=== PATIENT | female | born 1940 | race Caucasian/White ===

== ENCOUNTER 2017-04-30 10:16 | Outpatient (CLI) | payer MEDICARE ==
[2016-01-05 08:08] VITALS: BP 140/67
[2017-04-30 11:02] LABS: eGFR (African) > 60; eGFR (Non-African) > 60
--- NOTE | 2017-04-30 15:50 | Diagnostic Imaging Report ---
ARELI LOPEZ [facility] [address] [facility].[address] [address] Report Submission Date: Apr 30, 2017 2:57:32 PM CDT Patient Study Name: GREGG EVANS Date: Apr 30, 2017 10:41:17 AM CDT Modality Type: CR Gender: F Description: CHEST : 36 Institution: [facility] Physician: ARELI LOPEZ Examination: PA and lateral chest. History: Evaluate lung coe. Findings: PA lateral chest demonstrate a normal cardiac and mediastinal silhouette. Left hilar parenchymal densities. No effusion. No blunting of the costophrenic margins. Osseous structures are appropriate for age. Impression: Left hilar scarring versus mild infiltrate. Correlate with patient symptoms.. Electronically signed on Apr 30, 2017 2:57:32 PM CDT by: Rock MERCHANT
== END 2017-04-30 10:17 ==
LOC: RAD 10:16
PROVIDERS: ATTEND Family Medicine
DX: M19.019 Primary osteoarthritis, unspecified shoulder (principal); M79.7 Fibromyalgia; E78.5 Hyperlipidemia, unspecified; M81.0 Age-related osteoporosis without current pathological fracture
CPT/HCPCS: 36415; 71020; 80053; 80061

== ENCOUNTER 2017-10-28 15:08 | Outpatient (CLI) | payer MEDICARE ==
[2016-01-05 08:08] VITALS: BP 140/67
[2017-10-28 15:29] LABS: BASOPHILS % 0.5 (0.0-1.5); EOSINOPHILS % 1.8 % (0.0-6.8); MEAN CORPUSCULAR HEMOGLOBIN 30.1 pg (28.0-34.0); MEAN CORPUSCULAR VOLUME 91.1 fl (80.0-100.0); MONOCYTES % 4.2 % (0.0-11.0)
[2017-10-28 15:53] LABS: eGFR (African) > 60; eGFR (Non-African) > 60
[2017-10-28 23:47] LABS: T3-UPTAKE 33.3 % (25.4-41.2)
== END 2017-10-28 15:15 ==
LOC: LAB 15:08
PROVIDERS: ATTEND Family Medicine
DX: G60.9 Hereditary and idiopathic neuropathy, unspecified (principal); R03.0 Elevated blood-pressure reading, without diagnosis of hypertension
CPT/HCPCS: 36415; 80053; 84436; 84479; 85025; 85651

== ENCOUNTER 2017-10-30 13:33 | Outpatient (CLI) | payer MEDICARE ==
[2016-01-05 08:08] VITALS: BP 140/67
--- NOTE | 2017-10-30 15:18 | Diagnostic Imaging Report ---
REYNALDO TOLENTINO [facility] [address] [facility] [address] [place] [address]. [id number] Report Submission Date: Oct 30, 2017 2:05:53 PM FINISH CARPENTER Patient Study Name: GREGG EVANS Date: Oct 30, 2017 1:49:16 PM FINISH CARPENTER Modality Type: CR Gender: F Description: CHEST : 36 Institution: [facility] Physician: REYNALDO TOLENTINO Examination: PA and lateral chest. History: Evaluate lung coe. Comparison exam: 30 April 2017 Findings: PA lateral chest demonstrate a normal cardiac stable right paratracheal density. Vascular calcification by the aortic arch. No focal infiltrate. No blunting of the costophrenic margins. Osseous structures are appropriate for age. Impression: Stable examination. No acute appearing pulmonary process. Electronically signed on Oct 30, 2017 2:05:53 PM FINISH CARPENTER by: Rock MERCHANT
== END 2017-10-30 13:45 ==
LOC: LAB 13:33
PROVIDERS: ATTEND Physician Assistant
DX: R70.0 Elevated erythrocyte sedimentation rate (principal); R09.89 Other specified symptoms and signs involving the circulatory and respiratory systems
CPT/HCPCS: 36415; 71020; 86038; 86431

== ENCOUNTER 2017-11-13 07:40 | Emergency (ER) | payer MEDICARE ==
--- NOTE | 2017-11-13 07:59 | ED Physician Documentation ---
General Adult - HISTORIAN Historian: patient - HPI Stated Complaint: scalp irritation Chief Complaint: General Adult Onset: other (since Sep 26 ) Timing: still present Severity: mild Further Comments: yes (she states the beginning of Sep she got her normal perm and then 2 weeks later she states she did dye her hair and since she has had scalp irritation and burning . She did see Dr Gunderson and Garima and she was told she had an inflammation in her body but states she was not treated for anything. She did use OTC steroid cream last night on her scalp and she states it helped some. She is sure she has an inflammation with her scalp per the lab that Garima told her about she denies any pain or drainge.) - ROS CONST: no problems EYES/ENT: none CVS/RESP: none GI/: none MS/SKIN/LYMPH: denies: rash NEURO/PSYCH: denies: headache - PAST HX Past History: other (she did not want to list she states "you have all that" ) Surgeries/Procedures: other (She would not report ) Immunizations: referred to PCP Allergies/Adverse Reactions: Allergies Allergy/AdvReac Type Severity Reaction Status Date / Time No Known Drug Allergies Allergy Verified 11/13/17 08:03 - SOCIAL HX Smoking History: non-smoker Alcohol Use: none Drug Use: none - FAMILY HX Family History: No - VITAL SIGNS Vital Signs: Vital Signs Temp Pulse Resp BP Pulse Ox 140/67 01/05/16 08:17 - REVIEWED ASSESSMENTS Nursing Assessment Reviewed: Yes Vitals Reviewed: Yes General Adult Physical Exam - PHYSICAL EXAM GENERAL APPEARANCE: no distress NECK: normal inspection CVS: reg rate & rhythm, heart sounds normal ABDOMEN: soft SKIN: warm/dry, other (scalp is without redness no other areas of concern . Hair is thin) NEURO: oriented X3, CN's nml as tested Discharge Clincal Impression: Skin abnormality Referrals: Frank Gunderson MD [Primary Care Provider] - 2 Days Comments: Follow up with PCP for any lab concerns Also use OTC meds to aide with moisturizer Condition: Stable Disposition: 01 HOME, SELF-CARE Decision to Admit: NO Date of Decison to Admit: 11/13/17 Decision Time: 08:11
[2017-11-13 08:06] VITALS: BP 164/71
== END 2017-11-13 08:22 | disposition home or self-care (01) ==
LOC: ED 07:40
DX: Q82.9 Congenital malformation of skin, unspecified (principal)
CPT/HCPCS: 99283

== ENCOUNTER 2017-11-18 08:27 | Emergency (ER) | payer MEDICARE ==
--- NOTE | 2017-11-18 09:16 | ED Physician Documentation ---
Upper Respiratory Symptoms - HISTORIAN Historian: patient - HPI Stated Complaint: On-going sore throat Chief Complaint: Sore Throat Onset: days ago (3-4) Context: denies: recent foreign travel, insect bite(s), tick(s), recent chemotherapy, multiple patients, same sx, other Severity: moderate Associated Symptoms: fever, chills, runny nose, sore throat, productive cough. denies: sinus pain, sinus drainage, shortness of breath, headache Further Comments: yes (77 year old female patient presents with complaints of sore throat and cough. Patient denies any headache, sinus drainage or SOB. Reports using nyquil and dayquil at home with no relief.) - ROS CONST/EYES: denies: weakness, eye redness, eye itching, other CVS/RESP: none LYMPH: denies: leg swelling, rash, swollen glands, ankle swelling, other GI/: none MS/SKIN: denies: joint pain, muscle aches - PAST HX Lung Disease: none PE Risk Factors: hypertension Other History: other (GERD) Allergies/Adverse Reactions: Allergies Allergy/AdvReac Type Severity Reaction Status Date / Time No Known Drug Allergies Allergy Verified 11/18/17 08:53 Home Medications: Ambulatory Orders Medication Instructions Recorded Benzonatate [Tessalon Perles] 200 mg PO TID PRN #30 capsule 11/18/17 Ranitidine HCl [Ranitidine HCl] 150 mg PO D 11/18/17 - SOCIAL HX Smoking History: non-smoker - FAMILY HX Family History: denies: none - VITAL SIGNS Vital Signs: Vital Signs Temp Pulse Resp BP Pulse Ox 98.3 F 85 16 160/61 94 11/18/17 08:28 11/18/17 08:28 11/18/17 08:28 11/18/17 08:28 11/18/17 08:28 - REVIEWED ASSESSMENTS Nursing Assessment Reviewed: Yes Vitals Reviewed: Yes Progress - Progress Progress: Reviewed old charts and lab. Reviewed negative flu and negative strep results with patient. Reviewed discharge instructions, verbalized understanding. ED Results Lab/Radiology - Orders Orders: ED Orders Category Date Time Status INFLUENZA A&B Stat Lab 11/18/17 09:36 Ordered Rapid Strep [GRP A STREP SCREEN] Stat Lab 11/18/17 08:55 Ordered Upper Respiratory Symptoms - EXAM General Appearance: mild distress EENT: eyes nml inspection, nml ENT inspection, lids & conjunct. nml, PERRL, ear nml, rhinorrhea, pharynx nml, airway nml Respiratory: no resp. 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 Chloraseptic spray or lozenges as needed for throat pain. Warm salt water gargles as needed pain Increase your fluid intake juices, hot tea, non-caffeinated beverages If you are congested - You may want to try Vicks rub on your chest and/or feet Use a humidifier in the room where you sleep. You can also sit in a steam filled bathroom 1-2 times a day. Tylenol or Ibuprofen as needed for fever, pain and body aches. Condition: Stable Disposition: 01 HOME, SELF-CARE Decision to Admit: NO Decision Time: 09:45
[2017-11-18 13:18] VITALS: BP 154/62
== END 2017-11-18 09:45 | disposition home or self-care (01) ==
LOC: ED 08:27
DX: J00 Acute nasopharyngitis [common cold] (principal)
CPT/HCPCS: 87070; 87400; 87880; 99282

== ENCOUNTER 2017-12-09 08:08 | Inpatient (IN) | payer MEDICARE ==
--- NOTE | 2017-12-09 08:16 | ED Physician Documentation ---
General Adult - HISTORIAN Historian: patient - HPI Stated Complaint: cough, weakness Chief Complaint: General Adult Onset: days ago Timing: still present Severity: moderate Further Comments: yes (Pt is a 77 yo female with cough, productive of yellow phlegm for several days. Pt c/o weakness. No chest pain. Pt's SpO2=91% on presentation without fever.) - ROS CONST: weakness EYES/ENT: none CVS/RESP: shortness of breath, cough GI/: none MS/SKIN/LYMPH: none - PAST HX Past History: hypertension, other (GERD) Allergies/Adverse Reactions: Allergies Allergy/AdvReac Type Severity Reaction Status Date / Time No Known Drug Allergies Allergy Verified 12/09/17 08:25 - SOCIAL HX Smoking History: non-smoker - FAMILY HX Family History: No - VITAL SIGNS Vital Signs: Vital Signs Temp Pulse Resp BP Pulse Ox 154/62 11/18/17 13:14 - REVIEWED ASSESSMENTS Nursing Assessment Reviewed: Yes Vitals Reviewed: Yes Progress - Progress Progress: NS 500 cc IVF Lasix 20 mg IV Levaquin 500 mg IV Admit to Dr. Gunderson. - EKG/XRAY/CT EKG: NSR (HR=69; possible LVH; non-specific T-wave changes; normal axis; normal MS interval.) XRAY: chest ( Bibasilar infiltrates and effusions.) General Adult Physical Exam - PHYSICAL EXAM GENERAL APPEARANCE: mild distress EENT: pharynx normal NECK: normal inspection, supple RESPIRATORY: rales, rhonchi, other (coarse breath sounds) CVS: reg rate & rhythm, heart sounds normal ABDOMEN: soft, no organomegaly, normal bowel sounds BACK: normal inspection, no CVA tenderness SKIN: warm/dry, normal color EXTREMITIES: non-tender, normal range of motion, no evidence of injury NEURO: oriented X3, motor nml, sensation nml Discharge Clincal Impression: bibasilar pneumonia, CHF Referrals: Frank Gunderson MD [Primary Care Provider] - Condition: Stable Disposition: ADMITTED INPATIENT Decision to Admit: [id number] Decision Time: 11:11
[2017-12-09] MEDS ORDERED: 0.9 % SODIUM CHLORIDE 500 ML IV ONE (08:26)
[2017-12-09 09:14] LABS: BASOPHILS % 0.6 (0.0-1.5); EOSINOPHILS % 0.3 % (0.0-6.8); MEAN CORPUSCULAR HEMOGLOBIN 30.4 pg (28.0-34.0); MEAN CORPUSCULAR VOLUME 90.7 fl (80.0-100.0); MONOCYTES % 4.3 % (0.0-11.0); NEUTROPHILS # 17.1 # k/uL (1.4-7.7)
[2017-12-09 10:03] LABS: eGFR (African) > 60; eGFR (Non-African) > 60
[2017-12-09] MEDS ORDERED: FUROSEMIDE 20 MG/2 ML VIAL IVP ONE (10:09)
--- NOTE | 2017-12-09 10:14 | Diagnostic Imaging Report ---
JOSE DE JESUS SHERWOOD [facility] [address] [facility] [address] [place] [address]. [id number] Report Submission Date: Dec 09, 2017 8:49:45 AM VIDEO PRODUCTION ASSISTANT Patient Study Name: GREGG EVANS Date: Dec 09, 2017 8:38:40 AM VIDEO PRODUCTION ASSISTANT Modality Type: CR Gender: F Description: CHEST : 36 Institution: [facility] Physician: JOSE DE JESUS SHERWOOD Examination: PA and lateral chest. History: Evaluate lung coe. Comparison exam: 30 October 2017 Findings: PA lateral chest demonstrate a normal cardiac and mediastinal silhouette. Vascular calcifications involving aortic arch. Increased basilar infiltrates associated blunting of the costophrenic margins and posterior sulci. Apical parenchymal scarring. Osseous structures are appropriate for age. Impression: Bibasilar infiltrates and effusions. Electronically signed on Dec 09, 2017 8:49:45 AM VIDEO PRODUCTION ASSISTANT by: Rock MERCHANT
[2017-12-09] MEDS ORDERED: IPRATROPIUM/ALBUTEROL SULFATE 3 ML AMPUL.NEB NEB PRN (11:04)
[2017-12-09] MEDS ORDERED: LEVOFLOXACIN 500MG/D5W 100ML 500 MG in PREMIX BAG 1 BAG IV ONE (11:09)
[2017-12-09] MEDS ORDERED: LEVOFLOXACIN 500MG/D5W 100ML 100 ML IV ONE ×2 (11:19→13:29)
[2017-12-09] MEDS: FUROSEMIDE 20 MG/2 ML VIAL IVP SCH ×2 (11:29→11:30)
[2017-12-09] MEDS: AZITHROMYCIN 500 MG in 0.9 % SODIUM CHLORIDE 250 ML IV SCH (11:29)
[2017-12-09] MEDS ORDERED: ONDANSETRON HCL/PF 4 MG/ 2ML VIAL ONE (12:33)
[2017-12-09] MEDS ORDERED: ONDANSETRON HCL/PF 4 MG/ 2ML VIAL IVP ONE (12:35)
--- NOTE | 2017-12-09 13:13 | History and Physical Report ---
History of Present Illnes - History of Present Illness Reason for Visit: dyspnea History of Present Illness: Patient is a 77-year-old white femaleWho stated she is not been feeling well for the last month. Patient states she has been fatigued having some nondescript numbness and tingling sensation to her hands. Patient believes that she replaced on antibiotic therapy for 10 days for some sinus congestion/ drainage that she finished in the end of October. Patient does not remember the name of the antibiotic. Patient data she continue to feel weeks since the time in over the last 5 to 7 days of developed a productive cough up some green to yellow phlegm. No home offices has been noted. Patient denies any chills is a mild low-grade fever from time to time. Patient came to the ED for evaluation. Patient was found to have bilateral lower infiltrates with a leukocytosis of 20,000 with a left shift. Patient was felt to have a pneumonia was subsequently admitted to the hospital for further care and evaluation. 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 negative: Chills, Sweats Eyes: negative: pain, vision change ENT: Nose Discharge (clear), Nose Congestion. negative: Ear Pain, Ear Discharge , Nose Pain, Mouth Pain, Mouth Swelling, Throat Pain Respiratory: Cough, Shortness of Breath, SOB with Excertion, Sputum, Wheezing. negative: Hemoptysis, Pleuritic Pain Cardiovascular: negative: Chest Pain, Palpitations, Orthopnea, Paroxysmal Noc. Dyspnea, Edema, Light Headedness Gastrointestinal: negative: Nausea, Vomiting, Abdominal Pain, Diarrhea, Constipation, Melena, Hematochezia Genitourinary: negative: Dysuria, Frequency, Incontinence, Hematuria, Retention Musculoskeletal: negative: Back Pain Skin: negative: Rash, Lesions Neurological: Weakness. negative: Numbness, Incoordination, Change in Speech, Confusion, Seizures - Medications/Allergies Allergies/Adverse Reactions: Allergies Allergy/AdvReac Type Severity Reaction Status Date / Time No Known Drug Allergies Allergy Verified 12/09/17 08:25 Current Inpatient Medications: Current Inpatient Medications Albuterol/Ipratropium (Duoneb) 3 ml NEB Q4 [facility] Furosemide (Lasix) 20 mg IVP DAILY [facility] Last Admin: 12/09/17 11:30 Dose: 20 mg Azithromycin 500 mg/ Sodium (Chloride) 250 mls @ 125 mls/hr IV Q24H [facility] Stop: 12/19/17 11:03 Last Admin: 12/09/17 11:29 Dose: 125 mls/hr Levofloxacin/Dextrose 500 mg/ (PREMIX BAG) 100 mls @ 100 mls/hr IV DAILY [facility] Sodium Chloride (Normal Saline Flush) 3 ml IV BID [facility] Temazepam () 15 mg PO HS [facility] Exam - Exam Vital Signs: Vital Signs (72 hours) 12/09/17 12:45 Pulse Rate [ 86 Left Pulse ox] Respiratory 19 Rate Blood Pressure 114/72 [Left Arm] O2 Sat by Pulse 91 L Oximetry General: Alert, Oriented to Person, Oriented to Place, Oriented to Time, Cooperative, Mild distress HEENT: Atraumatic, PERRLA, EOMI, Mouth Mucous membr. moist/Silt, Nose Mucous membr. moist/Silt, Dentition Normal, Hearing Grossly Normal Neck: Normal Range of Motion Carotids: WNL Thyroid: WNL Lungs: Clear to auscultation, Normal air movement, Speaks full Sentences, Wheezes (L base), Rales (in bases R>L), Rhonchi (in bases R>L) Cardiovascular: Regular rate, Normal S1, Normal S2, No murmurs. No: Gallops, Rubs, Irregularly Irregular, Regularly Irregular, Bradycardia, Tachycardia, Atrial Fib, Atrail Flutter, PSVT, PVC, PAC Abdomen: Normal bowel sounds, Soft, No tenderness, No hepatospenomegaly, No masses. No: Distended, Rigid Integumentary: Normal, Silt, Warm, Dry. No: Pale, Flushed, Jaundiced, Rash Extremities: No clubbing, No cyanosis, No edema, Normal pulses, No tenderness/ swelling Neurological: Normal gait, Normal speech, Strength Equal Bilat, Normal tone, Sensation intact, Cranial nerves 3-12 NL, Reflexes 2+ Psych/Mental Status: Mental status NL, Mood NL, Appropriate Affect, Intact Judgment Assessment/Plan - Assessment/Plan (1) Pneumonia Status: Acute Current Visit: Yes Qualifiers: Pneumonia type: due to unspecified organism Laterality: bilateral Lung location: lower lobe of lung Qualified Code(s): J18.9 - Pneumonia, unspecified organism (2) History of breast cancer Status: Chronic Current Visit: Yes (3) Fibromyalgia Status: Chronic Current Visit: Yes (4) Osteoarthritis Status: Chronic Current Visit: Yes Qualifiers: Osteoarthritis location: multiple joints Osteoarthritis type: primary Qualified Code(s): M15.0 - Primary generalized (osteo)arthritis VTE Assessment - RISK FACTOR SCORE VTE RISK FACTOR SCORES: AGE OVER 60 YEARS, ACUTE INFECTION OTHER THEN SEPSIS, ANTICIPATED BED CONFINEMENT OR IMMOBILIZATION > 24 HOURS - RISK VTE HIGH RISK: SCORE OF 3-4 (RISK PROXIMAL DVT 4-8%) PROPHYLAXIS NEEDED ( Lovenox started)
[2017-12-09] MEDS: ENOXAPARIN SODIUM 30 MG/0.3 ML DISP.SYRIN SQ SCH (13:43)
[2017-12-09] MEDS: IPRATROPIUM/ALBUTEROL SULFATE 3 ML AMPUL.NEB NEB SCH ×3 (13:45→21:00)
[2017-12-09 15:59] VITALS: BMI 22.0
[2017-12-09] MEDS: ONDANSETRON HCL 4 MG TAB.RAPDIS PO PRN (18:59)
[2017-12-09] MEDS: TEMAZEPAM 15 MG CAP PO SCH (20:04)
[2017-12-09] MEDS: SALINE FLUSH 10 ML DISP.SYRIN IV SCH (20:08)
[2017-12-10] MEDS: IPRATROPIUM/ALBUTEROL SULFATE 3 ML AMPUL.NEB NEB SCH ×6 (02:12→20:50)
[2017-12-10] MEDS: ONDANSETRON HCL 4 MG TAB.RAPDIS PO PRN ×2 (04:10→12:24)
[2017-12-10 05:57] LABS: APPEARANCE,URINE CLEAR (CLEAR); COLOR,URINE AMBER (YELLOW); OCCULT BLOOD,URINE NEGATIVE (NEGATIVE); UROBILINOGEN URINE 0.2 Eu (0.2-1.0)
[2017-12-10 07:39] LABS: BASOPHILS % 0.6 (0.0-1.5); EOSINOPHILS % 0.1 % (0.0-6.8); MEAN CORPUSCULAR HEMOGLOBIN 29.7 pg (28.0-34.0); MEAN CORPUSCULAR VOLUME 92.7 fl (80.0-100.0); MONOCYTES % 3.6 % (0.0-11.0); NEUTROPHILS # 15.3 # k/uL (1.4-7.7)
[2017-12-10 08:03] LABS: eGFR (African) > 60; eGFR (Non-African) > 60
[2017-12-10] MEDS ORDERED: LEVOFLOXACIN 500MG/D5W 100ML 100 ML IV ONE (08:32)
[2017-12-10] MEDS: SALINE FLUSH 10 ML DISP.SYRIN IV SCH ×2 (08:34→20:30)
[2017-12-10] MEDS: LEVOFLOXACIN 500MG/D5W 100ML 500 MG in PREMIX BAG 1 BAG IV SCH (08:34)
[2017-12-10] MEDS: AZITHROMYCIN 500 MG in 0.9 % SODIUM CHLORIDE 250 ML IV SCH (10:49)
--- NOTE | 2017-12-10 12:47 | Inpatient Progress Note ---
Subjective - Required Recertification Statement I anticipate X number of days because-include discharge plan: 2 days - Review of Systems Events since last encounter: patient states she is feeling better today although he still feels weak. Patient continues to have a cough that was productive up some green to clear plan. No hemoptysis has been noted. Patient is had some mild nausea with no associated vomiting. Patient denies any diarrhea. Last bowel movement with two days ago and normal. General: Denies: Chills HEENT: Denies: Head Aches Pulmonary: Dyspnea, Cough. Denies: Pleuritic Chest Pain Cardiovascular: Denies: Chest Pain, Palpitations Gastrointestinal: Nausea. Denies: Vomiting, Abdominal Pain, Diarrhea, Constipation Objective - Exam Vitals and I&O: Vital Signs Temp 98.8 F 12/10/17 10:00 Pulse 94 H 12/10/17 10:00 Resp 18 12/10/17 10:00 BP 161/71 12/10/17 10:00 Pulse Ox 96 12/10/17 10:00 Intake & Output 12/09/17 12/10/17 12/10/17 23:59 11:59 23:59 Intake Total 300 240 Output Total 300 700 Balance 0 -460 Weight 52.951 kg Intake: Oral 300 240 Output: Urine 700 Stool 0 Emesis 300 Other: Voiding Method Toilet Toilet # Voids 5 # Bowel Movements 0 General: Alert, Oriented to Person, Oriented to Place, Oriented to Time, Cooperative HEENT: Atraumatic, PERRLA, EOMI, Mouth Mucous membr. moist/Rhododendron, Nose Mucous membr. moist/Rhododendron Neck: Supple, No JVD, No thyromegaly Lungs: Normal air movement, Speaks full Sentences, Rales (right), Rhonchi (right ) Cardiovascular: Regular rate, Normal S1, Normal S2, No murmurs Abdomen: Normal bowel sounds, Soft, No tenderness, No hepatospenomegaly, No masses Extremities: No clubbing, No cyanosis, No edema, Normal pulses, No tenderness/ swelling Skin: Normal, Rhododendron, Warm, Dry Neurological: Normal gait, Normal speech, Strength Equal Bilat, Normal tone, Sensation intact, Cranial nerves 3-12 NL, Reflexes 2+ Psych/Mental Status: Mental status NL, Mood NL, Appropriate Affect, Intact Judgment - Results Results: Laboratory Results WBC 18.40 K/ul (4.00-12.00) H 12/10/17 06:50 RBC 3.70 M/ul (3.90-5.20) L 12/10/17 06:50 Hgb 11.0 g/dL (12.0-16.0) L 12/10/17 06:50 Hct 34.3 % (34.5-46.5) L 12/10/17 06:50 MCV 92.7 fl (80.0-100.0) 12/10/17 06:50 MCH 29.7 pg (28.0-34.0) 12/10/17 06:50 MCHC 32.1 g/dL (30.0-36.0) 12/10/17 06:50 RDW 13.5 % (11.3-14.3) 12/10/17 06:50 Plt Count 570 K/mm3 (130-400) H 12/10/17 06:50 Neut % (Auto) 82.8 % (39.0-79.0) H 12/10/17 06:50 Lymph % (Auto) 10.8 % (16.0-50.0) L 12/10/17 06:50 [place] % (Auto) 3.6 % (0.0-11.0) 12/10/17 06:50 Eos % (Auto) 0.1 % (0.0-6.8) 12/10/17 06:50 Baso % (Auto) 0.6 (0.0-1.5) 12/10/17 06:50 Neut # (Auto) 15.3 # k/uL (1.4-7.7) H 12/10/17 06:50 Lymph # (Auto) 2.0 # k/uL (0.6-4.0) 12/10/17 06:50 [place] # (Auto) 0.7 # k/uL (0.0-0.9) 12/10/17 06:50 Eos # (Auto) 0.0 # k/uL (0.0-0.6) 12/10/17 06:50 Baso # (Auto) 0.1 # k/uL (0.0-0.5) 12/10/17 06:50 Reactive Lymphs % 2.2 % (0.0-5.0) 12/10/17 06:50 Reactive Lymphs # 0.4 # k/uL (0.0-0.8) 12/10/17 06:50 Sodium 139 mmol/L (136-145) 12/10/17 06:50 Potassium 3.0 mmol/L (3.5-5.1) L 12/10/17 06:50 Chloride 97 mmol/L (98-107) L 12/10/17 06:50 Carbon Dioxide 26 mmol/L (22-30) 12/10/17 06:50 BUN 9 mg/dL (7-17) 12/10/17 06:50 Creatinine 0.70 mg/dL (0.52-1.04) 12/10/17 06:50 Estimated Creat Clear 64 12/10/17 06:50 Est GFR ( Amer) > 60 (60-) 12/10/17 06:50 Est GFR (Non-Af Amer) > 60 (60-) 12/10/17 06:50 Glucose 107 mg/dL (74-106) H 12/10/17 06:50 Calcium 8.4 mg/dL (8.4-10.2) 12/10/17 06:50 Total Bilirubin 0.4 mg/dL (0.2-1.3) 12/10/17 06:50 AST 28 U/L (15-46) 12/10/17 06:50 ALT 41 U/L (13-69) 12/10/17 06:50 Alkaline Phosphatase 185 U/L (38-126) H 12/10/17 06:50 Troponin I < 0.03 ng/mL (0.03-0.06) L 12/09/17 09:00 NT-Pro-B Natriuret Pep 2822.3 pg/mL (15.0-450.0) H 12/09/17 09:00 Total Protein 6.5 g/dL (6.3-8.2) 12/10/17 06:50 Albumin 2.9 g/dL (3.5-5.0) L 12/10/17 06:50 Urine Color Sherin (YELLOW) 12/09/17 11:02 Urine Appearance Clear (CLEAR) 12/09/17 11:02 Urine pH 6.0 (5.0 - 8.0) 12/09/17 11:02 Ur Specific Coyle 1.010 (1.010-1.030) 12/09/17 11:02 Urine Protein 1+ mg/dL (NEGATIVE) H 12/09/17 11:02 Urine Ketones Trace mg/dL (NEGATIVE) H 12/09/17 11:02 Urine Occult Blood Negative (NEGATIVE) 12/09/17 11:02 Urine Nitrite Negative (NEGATIVE) 12/09/17 11:02 Urine Bilirubin Negative (NEGATIVE) 12/09/17 11:02 Urine Urobilinogen 0.2 Eu (0.2-1.0) 12/09/17 11:02 Ur Leukocyte Esterase Negative (NEGATIVE) 12/09/17 11:02 Urine Glucose Negative mg/dL (NEGATIVE) 12/09/17 11:02 Assessment/Plan - Assessment/Plan (1) Pneumonia Status: Acute Current Visit: Yes Qualifiers: Pneumonia type: due to unspecified organism Laterality: bilateral Lung location: lower lobe of lung Qualified Code(s): J18.9 - Pneumonia, unspecified organism Assessment: patient breathing seemed to be some improve. Will continue with current treatment. Patient WBC count has improved slightly. (2) History of breast cancer Status: Chronic Current Visit: Yes (3) Fibromyalgia Status: Chronic Current Visit: Yes Assessment: stable (4) Osteoarthritis Status: Chronic Current Visit: Yes Qualifiers: Osteoarthritis location: multiple joints Osteoarthritis type: primary Qualified Code(s): M15.0 - Primary generalized (osteo)arthritis Assessment: stable will continue with home medications.
[2017-12-10] MEDS: ENOXAPARIN SODIUM 30 MG/0.3 ML DISP.SYRIN SQ SCH (13:07)
[2017-12-10] MEDS: POTASSIUM CHLORIDE 20 MEQ TABLET.ER PO SCH (13:09)
[2017-12-10] MEDS: TEMAZEPAM 15 MG CAP PO SCH (20:30)
[2017-12-11] MEDS: IPRATROPIUM/ALBUTEROL SULFATE 3 ML AMPUL.NEB NEB SCH ×6 (02:16→20:54)
[2017-12-11 06:51] LABS: BASOPHILS % 0.7 (0.0-1.5); EOSINOPHILS % 0.2 % (0.0-6.8); MEAN CORPUSCULAR HEMOGLOBIN 29.7 pg (28.0-34.0); MEAN CORPUSCULAR VOLUME 89.7 fl (80.0-100.0); MONOCYTES % 4.6 % (0.0-11.0); NEUTROPHILS # 14.6 # k/uL (1.4-7.7)
--- NOTE | 2017-12-11 07:05 | Diagnostic Imaging Report ---
[facility] [address] [address] [facility] [address] [address] Report Submission Date: Dec 11, 2017 6:52:44 AM ADA ACCOMMODATION CONSULTANT Patient Study Name: GREGG EVANS Date: Dec 11, 2017 6:14:18 AM ADA ACCOMMODATION CONSULTANT Modality Type: CR Gender: F Description: CHEST : 36 Institution: [facility] Physician: [facility]/MED SURG Chest, 2 view History: PRODUCTIVE COUGH X 2 WEEKS Findings: The heart size is normal. Mild bibasilar infiltrate is present with associated small bilateral pleural effusions. The osseous structures are normal. Impression: 1. Bibasilar infiltrate with small bilateral pleural effusions. Electronically signed on Dec 11, 2017 6:52:44 AM ADA ACCOMMODATION CONSULTANT by: Vinnie MERCHANT
--- NOTE | 2017-12-11 07:07 | Diagnostic Imaging Report ---
[facility] [address] [address] [facility] [address] [address] Report Submission Date: Dec 11, 2017 6:56:14 AM PER DIEM RN Patient Study Name: GREGG EVANS Date: Dec 11, 2017 6:17:34 AM PER DIEM RN Modality Type: CR Gender: F Description: ABDOMEN : 36 Institution: [facility] Physician: [facility] /MED SURG ABDOMEN AP VIew History: NAUSEA, ABDOMEN PAIN X 2 DAYS Findings: The bowel gas pattern is normal without evidence of obstruction or bowel dilation. No abnormal abdominal calcifications are present. Bilateral hip osteoarthritis is present. Impression: 1. Normal bowel gas pattern. Electronically signed on Dec 11, 2017 6:56:14 AM PER DIEM RN by: Vinnie MERCHANT
[2017-12-11 07:24] LABS: eGFR (African) > 60; eGFR (Non-African) > 60
[2017-12-11] MEDS ORDERED: LEVOFLOXACIN 500MG/D5W 100ML 100 ML IV ONE (09:22)
[2017-12-11] MEDS: POTASSIUM CHLORIDE 20 MEQ TABLET.ER PO SCH (09:29)
[2017-12-11] MEDS: LEVOFLOXACIN 500MG/D5W 100ML 500 MG in PREMIX BAG 1 BAG IV SCH (09:29)
[2017-12-11] MEDS: SALINE FLUSH 10 ML DISP.SYRIN IV SCH ×2 (09:30→19:37)
[2017-12-11] MEDS: FUROSEMIDE 20 MG/2 ML VIAL IVP SCH (10:30)
[2017-12-11] MEDS: ENOXAPARIN SODIUM 30 MG/0.3 ML DISP.SYRIN SQ SCH (13:23)
[2017-12-11] MEDS: AZITHROMYCIN 500 MG in 0.9 % SODIUM CHLORIDE 250 ML IV SCH (13:23)
[2017-12-11] MEDS: TEMAZEPAM 15 MG CAP PO SCH (19:38)
--- NOTE | 2017-12-11 20:57 | Inpatient Progress Note ---
Subjective - Required Recertification Statement I anticipate X number of days because-include discharge plan: 1 day - Review of Systems Subjective: patient states she is feeling some better today. Patient stated her breathing seemed to be improved. Patient seemed to be ambulating with less dyspnea. Patient states she has had to small bowel limits. Patient is not had any further nausea. Hypertension has been stable. General: Fatigue. Denies: Chills HEENT: Denies: Head Aches Pulmonary: Dyspnea, Cough. Denies: Pleuritic Chest Pain Cardiovascular: Denies: Chest Pain Gastrointestinal: Constipation. Denies: Nausea, Vomiting, Abdominal Pain, Diarrhea Objective - Exam Vitals and I&O: Vital Signs Temp 99.3 F 12/11/17 16:49 Pulse 102 H 12/11/17 16:49 Resp 20 12/11/17 13:21 BP 139/66 12/11/17 16:49 Pulse Ox 95 12/11/17 16:49 Intake & Output 12/10/17 12/11/17 12/11/17 23:59 11:59 23:59 Intake Total 720 120 380 Output Total 0 800 Balance 720 -680 380 Weight 52.951 kg Intake: Oral 720 120 380 Output: Urine 800 Stool 0 Other: Voiding Method Toilet Toilet Toilet # Voids 4 2 General: Alert, Oriented to Person, Oriented to Place, Oriented to Time, Cooperative, No acute distress Neck: Supple, No JVD Lungs: Normal air movement, Speaks full Sentences, Rales (few posterior basilar rales). No: Wheezes, Rhonchi Cardiovascular: Regular rate, Normal S1, Normal S2, No murmurs Abdomen: Normal bowel sounds, Soft, No tenderness Extremities: No clubbing, No cyanosis, No edema Skin: Normal, [place], Warm Psych/Mental Status: Mental status NL, Appropriate Affect, Intact Judgment - Results Results: Laboratory Results WBC 18.10 K/ul (4.00-12.00) H 12/11/17 06:45 RBC 3.92 M/ul (3.90-5.20) 12/11/17 06:45 Hgb 11.6 g/dL (12.0-16.0) L 12/11/17 06:45 Hct 35.1 % (34.5-46.5) 12/11/17 06:45 MCV 89.7 fl (80.0-100.0) 12/11/17 06:45 MCH 29.7 pg (28.0-34.0) 12/11/17 06:45 MCHC 33.1 g/dL (30.0-36.0) 12/11/17 06:45 RDW 13.9 % (11.3-14.3) 12/11/17 06:45 Plt Count 596 K/mm3 (130-400) H 12/11/17 06:45 Neut % (Auto) 80.6 % (39.0-79.0) H 12/11/17 06:45 Lymph % (Auto) 11.6 % (16.0-50.0) L 12/11/17 06:45 [place] % (Auto) 4.6 % (0.0-11.0) 12/11/17 06:45 Eos % (Auto) 0.2 % (0.0-6.8) 12/11/17 06:45 Baso % (Auto) 0.7 (0.0-1.5) 12/11/17 06:45 Neut # (Auto) 14.6 # k/uL (1.4-7.7) H 12/11/17 06:45 Lymph # (Auto) 2.1 # k/uL (0.6-4.0) 12/11/17 06:45 [place] # (Auto) 0.8 # k/uL (0.0-0.9) 12/11/17 06:45 Eos # (Auto) 0.0 # k/uL (0.0-0.6) 12/11/17 06:45 Baso # (Auto) 0.1 # k/uL (0.0-0.5) 12/11/17 06:45 Reactive Lymphs % 2.3 % (0.0-5.0) 12/11/17 06:45 Reactive Lymphs # 0.4 # k/uL (0.0-0.8) 12/11/17 06:45 Sodium 137 mmol/L (136-145) 12/11/17 06:45 Potassium 3.4 mmol/L (3.5-5.1) L 12/11/17 06:45 Chloride 97 mmol/L (98-107) L 12/11/17 06:45 Carbon Dioxide 27 mmol/L (22-30) 12/11/17 06:45 BUN 9 mg/dL (7-17) 12/11/17 06:45 Creatinine 0.70 mg/dL (0.52-1.04) 12/11/17 06:45 Estimated Creat Clear 64 12/11/17 06:45 Est GFR ( Amer) > 60 (60-) 12/11/17 06:45 Est GFR (Non-Af Amer) > 60 (60-) 12/11/17 06:45 Glucose 103 mg/dL (74-106) 12/11/17 06:45 Calcium 8.7 mg/dL (8.4-10.2) 12/11/17 06:45 Total Bilirubin 0.4 mg/dL (0.2-1.3) 12/11/17 06:45 AST 26 U/L (15-46) 12/11/17 06:45 ALT 37 U/L (13-69) 12/11/17 06:45 Alkaline Phosphatase 176 U/L (38-126) H 12/11/17 06:45 Troponin I < 0.03 ng/mL (0.03-0.06) L 12/09/17 09:00 NT-Pro-B Natriuret Pep 2822.3 pg/mL (15.0-450.0) H 12/09/17 09:00 Total Protein 7.0 g/dL (6.3-8.2) 12/11/17 06:45 Albumin 3.1 g/dL (3.5-5.0) L 12/11/17 06:45 Urine Color Sherin (YELLOW) 12/09/17 11:02 Urine Appearance Clear (CLEAR) 12/09/17 11:02 Urine pH 6.0 (5.0 - 8.0) 12/09/17 11:02 Ur Specific Means 1.010 (1.010-1.030) 12/09/17 11:02 Urine Protein 1+ mg/dL (NEGATIVE) H 12/09/17 11:02 Urine Ketones Trace mg/dL (NEGATIVE) H 12/09/17 11:02 Urine Occult Blood Negative (NEGATIVE) 12/09/17 11:02 Urine Nitrite Negative (NEGATIVE) 12/09/17 11:02 Urine Bilirubin Negative (NEGATIVE) 12/09/17 11:02 Urine Urobilinogen 0.2 Eu (0.2-1.0) 12/09/17 11:02 Ur Leukocyte Esterase Negative (NEGATIVE) 12/09/17 11:02 Urine Glucose Negative mg/dL (NEGATIVE) 12/09/17 11:02 Assessment/Plan - Assessment/Plan (1) Pneumonia Status: Acute Current Visit: Yes Qualifiers: Pneumonia type: due to unspecified organism Laterality: bilateral Lung location: lower lobe of lung Qualified Code(s): J18.9 - Pneumonia, unspecified organism Assessment: patient clinically is looking and feeling better. However patient WBC count remains at 18,000. If this does not improve much by tomorrow will consider getting a CT scan of the chest (2) History of breast cancer Status: Chronic Current Visit: Yes (3) Fibromyalgia Status: Chronic Current Visit: Yes Assessment: stable (4) Osteoarthritis Status: Chronic Current Visit: Yes Qualifiers: Osteoarthritis location: multiple joints Osteoarthritis type: primary Qualified Code(s): M15.0 - Primary generalized (osteo)arthritis
[2017-12-12] MEDS: IPRATROPIUM/ALBUTEROL SULFATE 3 ML AMPUL.NEB NEB SCH ×6 (01:18→21:16)
[2017-12-12 06:53] LABS: BASOPHILS % 0.5 (0.0-1.5); EOSINOPHILS % 0.4 % (0.0-6.8); MEAN CORPUSCULAR HEMOGLOBIN 29.2 pg (28.0-34.0); MEAN CORPUSCULAR VOLUME 92.6 fl (80.0-100.0); MONOCYTES % 4.6 % (0.0-11.0); NEUTROPHILS # 9.6 # k/uL (1.4-7.7)
[2017-12-12 07:09] LABS: eGFR (African) > 60; eGFR (Non-African) > 60
[2017-12-12] MEDS ORDERED: LEVOFLOXACIN 500MG/D5W 100ML 100 ML IV ONE (09:56)
[2017-12-12] MEDS: POTASSIUM CHLORIDE 20 MEQ TABLET.ER PO SCH (10:01)
[2017-12-12] MEDS: FUROSEMIDE 20 MG/2 ML VIAL IVP SCH (10:01)
[2017-12-12] MEDS: LEVOFLOXACIN 500MG/D5W 100ML 500 MG in PREMIX BAG 1 BAG IV SCH (10:02)
[2017-12-12] MEDS: SALINE FLUSH 10 ML DISP.SYRIN IV SCH ×2 (10:02→20:16)
[2017-12-12] MEDS: AZITHROMYCIN 500 MG in 0.9 % SODIUM CHLORIDE 250 ML IV SCH (10:46)
[2017-12-12] MEDS: ENOXAPARIN SODIUM 30 MG/0.3 ML DISP.SYRIN SQ SCH (14:10)
[2017-12-12] MEDS: TEMAZEPAM 15 MG CAP PO SCH (20:18)
[2017-12-13] MEDS: IPRATROPIUM/ALBUTEROL SULFATE 3 ML AMPUL.NEB NEB SCH ×3 (00:43→08:47)
[2017-12-13] MEDS ORDERED: AZITHROMYCIN 250 MG TABLET PO ONE ×2 (08:38→08:40)
[2017-12-13] MEDS ORDERED: LEVOFLOXACIN 500 MG TABLET ONE (08:38)
[2017-12-13] MEDS ORDERED: LEVOFLOXACIN 500 MG TABLET PO ONE (08:40)
[2017-12-13] MEDS: LEVOFLOXACIN 500MG/D5W 100ML 500 MG in PREMIX BAG 1 BAG IV SCH (08:43)
[2017-12-13] MEDS: POTASSIUM CHLORIDE 20 MEQ TABLET.ER PO SCH (08:43)
[2017-12-13] MEDS: FUROSEMIDE 20 MG/2 ML VIAL IVP SCH (08:44)
[2017-12-13] MEDS: SALINE FLUSH 10 ML DISP.SYRIN IV SCH (08:44)
[2017-12-13] MEDS: AZITHROMYCIN 500 MG in 0.9 % SODIUM CHLORIDE 250 ML IV SCH (08:47)
[2017-12-13 09:32] VITALS: BP 151/71
--- NOTE | 2018-01-12 16:12 | Discharge Summary ---
Discharge Summary - Discharge Sumary History of Present Illness: Patient is a 77-year-old white femaleWho stated she is not been feeling well for the last month. Patient states she has been fatigued having some nondescript numbness and tingling sensation to her hands. Patient believes that she replaced on antibiotic therapy for 10 days for some sinus congestion/ drainage that she finished in the end of October. Patient does not remember the name of the antibiotic. Patient data she continue to feel weeks since the time in over the last 5 to 7 days of developed a productive cough up some green to yellow phlegm. No home offices has been noted. Patient denies any chills is a mild low-grade fever from time to time. Patient came to the ED for evaluation. Patient was found to have bilateral lower infiltrates with a leukocytosis of 20,000 with a left shift. Patient was felt to have a pneumonia was subsequently admitted to the hospital for further care and evaluation. Condition at Discharge: Stable Home Medications: Ambulatory Orders Medication Instructions Recorded Azithromycin [Zithromax] 250 mg PO DAILY #2 tablet 12/12/17 Levofloxacin [Levaquin] 500 mg PO D #7 tablet 12/12/17 Allergies/Adverse Reactions: Allergies Allergy/AdvReac Type Severity Reaction Status Date / Time No Known Drug Allergies Allergy Verified 12/09/17 08:25 Discharge Summary: Patient was felt to have bilateral Basler infiltration chest x-ray. Patient does have an elevated WBC count. Patient was started on IV Levaquin on azithromycin. Patient was started on hypo nebulization treatment. Patient was started on the supplemental oxygen therapy.Initially patient WBC count was 20,000. At the time of dismissal it was down to 14,000. Patient did have slow improvement in her breathing status but is the time of dismissal was able to be discharged off of oxygen therapy. Patient continues to have a mild cough but it was less productive and was starting to clear from her cough at the time of admission. - Final Diagnosis (1) Pneumonia Problems: improved, will finsih antibiotic orally on out patient with azithormycin and levaquin. (3) Fibromyalgia Problems: stable on home medications (4) Osteoarthritis Problems: stable
--- NOTE | 2018-01-12 16:20 | Inpatient Progress Note ---
Subjective - Required Recertification Statement I anticipate X number of days because-include discharge plan: 1day - Review of Systems Subjective: patient states she is feeling some better today. Patient stated her breathing seemed to be improved. Patient seemed to be ambulating with less dyspnea. Patient states she has had to small bowel limits. Patient is not had any further nausea. Hypertension has been stable. Objective - Exam Vitals and I&O: Vital Signs Temp 99.0 F 12/13/17 09:31 Pulse 90 12/13/17 09:31 Resp 20 12/13/17 09:31 BP 151/71 12/13/17 09:31 Pulse Ox 90 L 12/13/17 09:31 - Results Results: Laboratory Results WBC 14.30 K/ul (4.00-12.00) H 12/12/17 06:10 RBC 3.64 M/ul (3.90-5.20) L 12/12/17 06:10 Hgb 10.6 g/dL (12.0-16.0) L 12/12/17 06:10 Hct 33.7 % (34.5-46.5) L 12/12/17 06:10 MCV 92.6 fl (80.0-100.0) 12/12/17 06:10 MCH 29.2 pg (28.0-34.0) 12/12/17 06:10 MCHC 31.5 g/dL (30.0-36.0) 12/12/17 06:10 RDW 13.6 % (11.3-14.3) 12/12/17 06:10 Plt Count 504 K/mm3 (130-400) H 12/12/17 06:10 Neut % (Auto) 67.3 % (39.0-79.0) 12/12/17 06:10 Lymph % (Auto) 23.6 % (16.0-50.0) 12/12/17 06:10 [place] % (Auto) 4.6 % (0.0-11.0) 12/12/17 06:10 Eos % (Auto) 0.4 % (0.0-6.8) 12/12/17 06:10 Baso % (Auto) 0.5 (0.0-1.5) 12/12/17 06:10 Neut # (Auto) 9.6 # k/uL (1.4-7.7) H 12/12/17 06:10 Lymph # (Auto) 3.4 # k/uL (0.6-4.0) 12/12/17 06:10 [place] # (Auto) 0.7 # k/uL (0.0-0.9) 12/12/17 06:10 Eos # (Auto) 0.1 # k/uL (0.0-0.6) 12/12/17 06:10 Baso # (Auto) 0.1 # k/uL (0.0-0.5) 12/12/17 06:10 Reactive Lymphs % 3.6 % (0.0-5.0) 12/12/17 06:10 Reactive Lymphs # 0.5 # k/uL (0.0-0.8) 12/12/17 06:10 Sodium 136 mmol/L (136-145) 12/12/17 06:10 Potassium 3.5 mmol/L (3.5-5.1) 12/12/17 06:10 Chloride 99 mmol/L (98-107) 12/12/17 06:10 Carbon Dioxide 28 mmol/L (22-30) 12/12/17 06:10 BUN 8 mg/dL (7-17) 12/12/17 06:10 Creatinine 0.60 mg/dL (0.52-1.04) 12/12/17 06:10 Estimated Creat Clear 74 12/12/17 06:10 Est GFR ( Amer) > 60 (60-) 12/12/17 06:10 Est GFR (Non-Af Amer) > 60 (60-) 12/12/17 06:10 Glucose 99 mg/dL (74-106) 12/12/17 06:10 Calcium 8.3 mg/dL (8.4-10.2) L 12/12/17 06:10 Total Bilirubin 0.4 mg/dL (0.2-1.3) 12/12/17 06:10 AST 25 U/L (15-46) 12/12/17 06:10 ALT 34 U/L (13-69) 12/12/17 06:10 Alkaline Phosphatase 129 U/L (38-126) H 12/12/17 06:10 Troponin I < 0.03 ng/mL (0.03-0.06) L 12/09/17 09:00 NT-Pro-B Natriuret Pep 2822.3 pg/mL (15.0-450.0) H 12/09/17 09:00 Total Protein 6.2 g/dL (6.3-8.2) L 12/12/17 06:10 Albumin 2.7 g/dL (3.5-5.0) L 12/12/17 06:10 Urine Color Sherin (YELLOW) 12/09/17 11:02 Urine Appearance Clear (CLEAR) 12/09/17 11:02 Urine pH 6.0 (5.0 - 8.0) 12/09/17 11:02 Ur Specific [place] 1.010 (1.010-1.030) 12/09/17 11:02 Urine Protein 1+ mg/dL (NEGATIVE) H 12/09/17 11:02 Urine Ketones Trace mg/dL (NEGATIVE) H 12/09/17 11:02 Urine Occult Blood Negative (NEGATIVE) 12/09/17 11:02 Urine Nitrite Negative (NEGATIVE) 12/09/17 11:02 Urine Bilirubin Negative (NEGATIVE) 12/09/17 11:02 Urine Urobilinogen 0.2 Eu (0.2-1.0) 12/09/17 11:02 Ur Leukocyte Esterase Negative (NEGATIVE) 12/09/17 11:02 Urine Glucose Negative mg/dL (NEGATIVE) 12/09/17 11:02 Assessment/Plan - Assessment/Plan (1) Pneumonia Status: Acute Qualifiers: Pneumonia type: due to unspecified organism Laterality: bilateral Lung location: lower lobe of lung Qualified Code(s): J18.9 - Pneumonia, unspecified organism (2) History of breast cancer Status: Chronic (3) Fibromyalgia Status: Chronic (4) Osteoarthritis Status: Chronic Qualifiers: Osteoarthritis location: multiple joints Osteoarthritis type: primary Qualified Code(s): M15.0 - Primary generalized (osteo)arthritis
== END 2017-12-13 10:20 | disposition home health service (06) | DRG 195 ==
LOC: ED 08:08 → SOUTH 12:18
PROVIDERS: ADMIT Family Medicine; ATTEND Family Medicine
DX: J18.9 Pneumonia, unspecified organism (principal); M79.7 Fibromyalgia; I10 Essential (primary) hypertension; M15.0 Primary generalized (osteo)arthritis; Z85.3 Personal history of malignant neoplasm of breast
CPT/HCPCS: 36415; 71020; 74000; 80053; 81002; 83880; 84484; 85025; 87040; 93005; A9270; J0456; J1650; J1940; J1956; J2405; J7050; J7060; 94640; 96365; 96367; 96375; 99222; 99232; 99238; 99284; S1016

== ENCOUNTER 2018-02-22 09:33 | Day surgery (SDC) | payer MEDICARE ==
--- NOTE | 2018-02-22 13:50 | GI Report ---
REFERRING PHYSICIAN: Dr. Frank Gunderson FUND DIRECTOR: Shan Ramos MD PROCEDURE MEDICATION: Propofol as per anesthesia. INDICATIONS: Patient is an 78-year-old woman who had a colonoscopy about 15 years ago. Recently, she has had some change in bowel habits. She was in the hospital in November with a respiratory infection which took a long time to get over. She has not been a smoker. She did lose some weight. She is at 52 kilograms. She is referred for an evaluation because of the change in bowel habits since it has been 15 years since her last evaluation. On examination, she still has a few wheezes in her lungs but she says she is no longer coughing or short of breath. Her heart is regular. Abdomen is scaphoid and soft. PROCEDURE PERFORMED: Colonoscopy. PROCEDURE: An Olympus video colonoscope was advanced to the rectum. In the sigmoid and descending colon, she does have extensive diverticular disease of the colon. It was kind of a slow process to work through that area. No obvious diverticulitis. A slightly atonic redundant colon. We were able to reach the cecum. The appendiceal orifice and ileocecal valve were normal. On slow withdrawal, the cecum, ascending colon, and transverse colon with no obvious intraluminal lesions noted. Descending colon and sigmoid colon with diverticular disease, some redundancy, but no obvious intraluminal lesions noted. The rectum was normal. Patient tolerated the procedure well. FINDINGS: Moderate severe diverticular disease of the sigmoid and descending colon. RECOMMENDATIONS: Increase bulk fiber in the diet or add Benefiber or Metamucil or MiraLAX daily. cc: Dr. Frank MERCHANT
== END 2018-02-22 09:34 ==
LOC: OPSURG 09:33
PROVIDERS: ATTEND Internal Medicine Gastroenterology
DX: Z12.11 Encounter for screening for malignant neoplasm of colon (principal); K57.30 Diverticulosis of large intestine without perforation or abscess without bleeding
CPT/HCPCS: J2001; J2704; J7120; G0121; S1016

== ENCOUNTER 2018-04-29 10:14 | Outpatient (CLI) | payer MEDICARE | END 2018-04-29 10:30 | LOC: RAD 10:14 | PROVIDERS: ATTEND Family Medicine | DX: M81.0 Age-related osteoporosis without current pathological fracture (principal) | CPT/HCPCS: 77080 ==

== ENCOUNTER 2018-07-05 08:36 | Emergency (ER) | payer MEDICARE ==
[2018-07-05 09:41] LABS: eGFR (African) > 60; eGFR (Non-African) > 60
--- NOTE | 2018-07-05 10:15 | ED Physician Documentation ---
General Adult - HISTORIAN Historian: patient - HPI Stated Complaint: sleep depervation Chief Complaint: General Adult Further Comments: yes (78 year old female patient presents with complaints of dehydration and sleep deprivation. Patient states Dr Jalyn changed her sleep medicaton and it is not working. Concerned she is dehydrated due to frequent thirst.) - ROS CONST: no problems EYES/ENT: none CVS/RESP: none GI/: none MS/SKIN/LYMPH: none NEURO/PSYCH: denies: headache, fainting, dizziness, difficulty with speech - PAST HX Past History: other (insomnia, breast CA, osteoarthritis, Fibromyalgia) Surgeries/Procedures: hysterectomy Allergies/Adverse Reactions: Allergies Allergy/AdvReac Type Severity Reaction Status Date / Time No Known Drug Allergies Allergy Verified 07/05/18 09:15 Home Medications: Ambulatory Orders Medication Instructions Recorded Temazepam [(None)] 15 mg PO HS 07/05/18 - SOCIAL HX Smoking History: non-smoker - FAMILY HX Family History: No - VITAL SIGNS Vital Signs: Vital Signs Temp Pulse Resp BP Pulse Ox 97.0 F L 75 16 184/72 97 07/05/18 08:44 07/05/18 08:44 07/05/18 08:44 07/05/18 08:44 07/05/18 08:44 - REVIEWED ASSESSMENTS Nursing Assessment Reviewed: Yes Vitals Reviewed: Yes Progress - Progress Progress: Call to [facility] - patient did not cone picker the rest of her prescription. On Jun 25, 2019, [facility] dispensed Temazepam #6; patient has not returned. [facility] to fill the rest of patient's prescription. Explained to patient that she had prescription ready. Reviewed discharge instructions. Verbalized understanding. ED Results Lab/Radiology - Lab Results Lab Results: Lab Results 07/05/18 09:00 Sodium 138 mmol/L mmol/L (136-145) Potassium 4.1 mmol/L mmol/L (3.5-5.1) Chloride 101 mmol/L mmol/L (98-107) Carbon Dioxide 25 mmol/L mmol/L (22-30) BUN 14 mg/dL mg/dL (7-17) Creatinine 0.70 mg/dL mg/dL (0.52-1.04) Estimated Creat Clear 60 Est GFR ( Amer) > 60 (60 - ) Est GFR (Non-Af Amer) > 60 (60 - ) Glucose 121 mg/dL H mg/dL (74-106) Calcium 9.0 mg/dL mg/dL (8.4-10.2) - Orders Orders: ED Orders Category Date Time Status BMP Routine Lab 07/05/18 09:00 Completed General Adult Physical Exam - PHYSICAL EXAM GENERAL APPEARANCE: anxious EENT: eye inspection normal, HETAL RESPIRATORY: no resp distress, chest non-tender, breath sounds normal CVS: reg rate & rhythm, heart sounds normal, equal pulses, no murmur, no gallop, PMI nml, no JVD, no friction rub, 24 ABDOMEN: soft, no organomegaly, normal bowel sounds, no abdominal bruit, no distension SKIN: normal color, warm/dry, NR, INT, PAL, DR EXTREMITIES: non-tender, normal range of motion, no evidence of injury, no edema, J, 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 They are getting your prescription ready. Condition: Stable Disposition: 01 HOME, SELF-CARE Decision to Admit: NO Decision Time: 10:18
[2018-07-05 10:28] VITALS: BP 160/74
== END 2018-07-05 10:26 | disposition home or self-care (01) ==
LOC: ED 08:36
DX: F51.01 Primary insomnia (principal)
CPT/HCPCS: 70491; 80048; 99282; S1016

== ENCOUNTER 2018-08-23 13:48 | Outpatient (CLI) | payer MEDICARE ==
[2018-08-23 16:17] LABS: eGFR (Non-African) > 60
[2018-08-23 23:41] LABS: BASO % 0.4 % (0.0-1.5); EOS % 0.6 % (0.0-6.8); LYMPH ABS # 2.13 thou/uL (0.60-4.00); MCH. 29.7 pg (28.0-34.0); MCV 91.7 fL (80.0-100.0); MONOCYTE ABS # 0.57 thou/uL (0.00-0.90); PLATELET COUNT 356 thou/uL (130-400)
== END 2018-08-23 13:50 ==
LOC: LAB 13:48
PROVIDERS: ATTEND Family Medicine
DX: R53.82 Chronic fatigue, unspecified (principal)
CPT/HCPCS: 36415; 80053; 84439; 84443; 84481; 85025; 85651; 86141

== ENCOUNTER 2018-08-23 16:48 | Outpatient (CLI) | payer MEDICARE | END 2018-08-23 16:50 | LOC: LABRHC 16:48 | PROVIDERS: ATTEND Family Medicine | DX: R07.0 Pain in throat (principal) | CPT/HCPCS: 87070 ==

== ENCOUNTER 2018-09-30 09:50 | Observation (INO) | payer MEDICARE ==
[2018-09-30] MEDS: 0.9 % SODIUM CHLORIDE 1,000 ML IV SCH ×2 (11:10→21:50)
[2018-09-30 11:15] LABS: MEAN CORPUSCULAR HEMOGLOBIN 29.8 pg (28.0-34.0)
[2018-09-30 11:16] LABS: BASOPHILS % 0.2 (0.0-1.5); EOSINOPHILS % 1.6 % (0.0-6.8); MONOCYTES % 5.5 % (0.0-11.0); NEUTROPHILS # 6.3 # k/uL (1.4-7.7)
[2018-09-30 11:30] LABS: eGFR (Non-African) > 60
[2018-09-30 11:38] VITALS: BMI 21.7
--- NOTE | 2018-09-30 12:34 | Diagnostic Imaging Report ---
[facility]/MED SURG [facility] [id number] [address] [facility].[address] 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 Otherwise, the cardiomediastinal silhouette is within normal limits. The lungs are mildly hyperinflated. Pulmonary vascularity is normal. There is no confluent infiltrate or pleural effusion. Impression: Mild hyperinflation. Aortic atherosclerosis. No active disease. Electronically signed on Sep 30, 2018 12:09:34 PM SATELLITE DISH INSTALLER by: Adilene MERCHANT
[2018-09-30] MEDS ORDERED: HYDROXYZINE HCL 25 MG TABLET PO SCH (21:00)
[2018-10-01] MEDS: 0.9 % SODIUM CHLORIDE 1,000 ML IV SCH (09:15)
[2018-10-01] MEDS: PANTOPRAZOLE SODIUM 40 MG TABLET PO SCH (09:15)
[2018-10-01] MEDS: LISINOPRIL 5 MG TABLET PO SCH (09:15)
--- NOTE | 2018-10-01 11:33 | History and Physical Report ---
History of Present Illnes - History of Present Illness Reason for Visit: Shortness of breath, weakness, decreased appetitie History of Present Illness: Patient is an 78-year-old white female who was seen in the clinic on 09/30/18 with c/o weakness, tired, visual disturbances, and decreased appetite. She states that the only thing she has been able to eat is chicken noodle soup. She has been having increasing shortness of breath with exertion over the last few days. She lives at home alone and is scared that her illness is worsening- she states that she is growing increasingly weaker and is afraid of falling. She denies any chest pain, nausea, or vomiting. No diarrhea. She is unsure if she has had any fevers. On assessment patient appears pale, fatigued, and tachypneic with resp. rate in the 30s and shallow. Her family took her to the [facility] Thursday more than a week ago and was discharged. She feels her symptoms are worsening and decision to admit patient observation was made. - Past Medical History Cardiac: denies: AFIB, HTN Pulmonary: Pneumonia (Hx of pneumonia). denies: Asthma [place] DR[place]: Peripheral neuropathy, Other (insomnia). 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 negative: Fever, Chills Eyes: negative: pain ENT: negative: Ear Pain, Mouth Pain Respiratory: Shortness of Breath, SOB with Excertion. negative: Cough Cardiovascular: negative: Chest Pain Gastrointestinal: Other (c/o decreased appetite). negative: Nausea, Vomiting Genitourinary: negative: Dysuria Musculoskeletal: Other (chronic aches/pains) Skin: negative: Rash Neurological: Weakness - Medications/Allergies Allergies/Adverse Reactions: Allergies Allergy/AdvReac Type Severity Reaction Status Date / Time ciprofloxacin [From Cipro] AdvReac Increased Verified 09/30/18 19:49 Mucus Production metronidazole AdvReac Increased Verified 09/30/18 19:49 Mucus Production Current Inpatient Medications: Current Inpatient Medications Hydroxyzine HCl (Atarax) 25 mg PO HS [facility] Sodium Chloride (Normal Saline) 1,000 mls @ 100 mls/hr IV Q10H [facility] Last Admin: 10/01/18 09:15 Dose: 100 mls/hr Lisinopril (Prinivil) 5 mg PO DAILY [facility] Last Admin: 10/01/18 09:15 Dose: 5 mg Pantoprazole Sodium (Protonix) 40 mg PO 0700 [facility] Last Admin: 10/01/18 09:15 Dose: 40 mg Temazepam () 30 mg PO HS [facility] Exam - Exam Vital Signs: Vital Signs (72 hours) 09/30/18 09/30/18 09/30/18 10:10 14:00 14:10 Temperature 98.2 F 97.4 F L Pulse Rate [ 81 84 Right Pulse ox] Respiratory 26 H 20 20 Rate Blood Pressure 186/87 172/84 [Left Arm] O2 Sat by Pulse 98 94 Oximetry 09/30/18 09/30/18 09/30/18 17:55 18:00 22:00 Temperature 97.8 F 98.0 F Pulse Rate [ 67 65 Right Pulse ox] Respiratory 20 20 16 Rate Blood Pressure 179/68 174/90 [Left Arm] O2 Sat by Pulse 96 96 Oximetry 10/01/18 10/01/18 10/01/18 01:38 05:46 07:41 Temperature 98.5 F 98.0 F 98.0 F Pulse Rate [ 67 68 89 Right Pulse ox] Respiratory 18 16 20 Rate Blood Pressure 166/80 175/82 180/84 [Left Arm] O2 Sat by Pulse 98 97 93 Oximetry General: Alert, Oriented to Person, Oriented to Place, Oriented to Time, Cooperative, Mild distress HEENT: Atraumatic, PERRLA Neck: Normal Range of Motion Lungs: Clear to auscultation, Normal air movement (but tachypneic at 30 rsp/min), Speaks full Sentences Cardiovascular: Normal S1, Normal S2, Tachycardia Abdomen: Normal bowel sounds, Soft, No tenderness Integumentary: Warm, Dry, Pale Extremities: No cyanosis, No edema, Normal pulses Neurological: Normal speech, Generalized Weakness Psych/Mental Status: Other (flat/depressed) - Laboratory Results Laboratory Results: Laboratory Results 09/30/18 09/30/18 09/30/18 11:00 11:00 Unknown WBC 8.80 RBC 4.21 Hgb 12.6 Hct 38.1 MCV 90.0 MCH 29.8 MCHC 33.0 RDW 12.6 Plt Count 282 Neut % (Auto) 71.6 Lymph % (Auto) 21.1 Pepin % (Auto) 5.5 Eos % (Auto) 1.6 Baso % (Auto) 0.2 Neut # (Auto) 6.3 Lymph # (Auto) 1.9 Pepin # (Auto) 0.5 Eos # (Auto) 0.1 Baso # (Auto) 0.0 Sodium 143 Potassium 3.8 Chloride 111 H Carbon Dioxide 25 BUN 13 Creatinine 0.50 L Est GFR ( Amer) > 60 Est GFR (Non-Af Amer) > 60 Glucose 93 Calcium 7.3 L Total Bilirubin < 0.1 L AST 15 ALT 28 Alkaline Phosphatase 59 Total Protein 6.4 Albumin 3.3 L Lipase 80 Assessment/Plan - Assessment/Plan (1) Abdominal pain Status: Acute (2) Weakness Status: Acute (3) History of breast cancer Status: Chronic (4) Insomnia Status: Chronic Qualifiers: Insomnia type: primary Qualified Code(s): F51.01 - Primary insomnia VTE Assessment - RISK FACTOR SCORE VTE RISK FACTOR SCORES: AGE OVER 60 YEARS
[2018-10-01] MEDS ORDERED: ACETAMINOPHEN 325 MG TABLET ONE (16:44)
[2018-10-01] MEDS ORDERED: ACETAMINOPHEN 325 MG TABLET PO PRN (16:45)
[2018-10-01] MEDS ORDERED: TEMAZEPAM 15 MG CAP PO SCH ×2 (21:00→22:00)
[2018-10-01] MEDS ORDERED: HYDROXYZINE HCL 25 MG TABLET PO SCH (22:00)
[2018-10-02] MEDS: PANTOPRAZOLE SODIUM 40 MG TABLET PO SCH (06:35)
[2018-10-02] MEDS: LISINOPRIL 5 MG TABLET PO SCH (08:46)
[2018-10-02 10:09] VITALS: BP 139/90
--- NOTE | 2018-10-03 15:41 | History and Physical Report ---
History of Present Illnes - History of Present Illness Reason for Visit: adb pain History of Present Illness: Patient is and 78-year-old white female who presented to the office complaining of not feeling well. Patient stated she recently was treated for diverticulitis. Patient states that when she took the antibiotics it caused her some problems that she is not had previously when she taken antibiotics. Patient has finished the course of the anabiotic several weeks ago but is not felt well since in. Patient stated her appetite has been diminished she feels that she may be getting dehydrated. Patient is not been able to sleep well. Patient has been scheduled for an endoscopy but was not able to keep the appointment. Patient was seen in clinic and was felt to be dehydrated. Patient was subsequently admitted to observation care for further workup and evaluation. - Past Medical History Cardiac: denies: AFIB, HTN Pulmonary: Pneumonia (Hx of pneumonia). denies: Asthma CIGARETTE CATCHER: Peripheral neuropathy, Other (insomnia). 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 negative: Fever, Chills Eyes: negative: pain, vision change, conjunctivae inflammation ENT: negative: Ear Pain Respiratory: negative: Cough, Dry, Shortness of Breath, Hemoptysis, SOB with Excertion, Pleuritic Pain, Sputum, Wheezing Cardiovascular: negative: Chest Pain Gastrointestinal: Nausea, Abdominal Pain. negative: Vomiting, Diarrhea, Constipation, Melena, Hematochezia Genitourinary: negative: Dysuria, Frequency, Incontinence Musculoskeletal: negative: Neck Pain Skin: negative: Rash, Lesions Neurological: Weakness - Medications/Allergies Allergies/Adverse Reactions: Allergies Allergy/AdvReac Type Severity Reaction Status Date / Time ciprofloxacin [From Cipro] AdvReac Increased Verified 09/30/18 19:49 Mucus Production metronidazole AdvReac Increased Verified 09/30/18 19:49 Mucus Production Exam - Exam Vital Signs: Vital Signs (72 hours) 09/30/18 09/30/18 09/30/18 17:55 18:00 22:00 Temperature 97.8 F 98.0 F Pulse Rate [ 67 65 Right Pulse ox] Respiratory 20 20 16 Rate Blood Pressure 179/68 174/90 [Left Arm] O2 Sat by Pulse 96 96 Oximetry 10/01/18 10/01/18 10/01/18 01:38 05:46 07:41 Temperature 98.5 F 98.0 F 98.0 F Pulse Rate [ 67 68 89 Right Pulse ox] Respiratory 18 16 20 Rate Blood Pressure 166/80 175/82 180/84 [Left Arm] O2 Sat by Pulse 98 97 93 Oximetry 10/01/18 10/01/18 10/01/18 10:00 14:00 17:05 Temperature 97 F L Pulse Rate [ 89 96 H Right Pulse ox] Respiratory 20 22 22 Rate Blood Pressure 169/94 [Left Arm] O2 Sat by Pulse 96 Oximetry 10/01/18 10/01/18 10/02/18 17:51 22:00 02:00 Temperature 97.6 F 37.5 F L 97.7 F Pulse Rate [ 85 81 76 Right Pulse ox] Respiratory 22 18 16 Rate Blood Pressure 179/81 185/73 130/65 [Left Arm] O2 Sat by Pulse 94 94 93 Oximetry 10/02/18 10/02/18 10/02/18 05:40 05:41 09:23 Temperature 98.2 F 97.3 F L Pulse Rate [ 76 78 105 H Right Pulse ox] Respiratory 16 16 18 Rate Blood Pressure 149/66 139/90 [Left Arm] O2 Sat by Pulse 97 Oximetry General: Alert, Oriented to Person, Oriented to Place, Oriented to Time, Cooperative, Mild distress HEENT: Atraumatic, PERRLA Neck: Normal Range of Motion. No: Stridor, Rigidity, Lymphadenopathy Carotids: WNL Thyroid: wnl Lungs: Clear to auscultation, Normal air movement, Speaks full Sentences. No: Wheezes, Rales, Rhonchi, Stridor Cardiovascular: Regular rate, Normal S1, Normal S2, No murmurs Abdomen: Normal bowel sounds, Soft, No hepatospenomegaly, No masses, Other (mild epigastric tenderness). No: Distended Integumentary: Normal, Long Neck, Warm, Dry Extremities: No clubbing, No cyanosis, No edema, Normal pulses Neurological: Normal gait, Normal speech, Strength Equal Bilat, Normal tone, Sensation intact, Cranial nerves 3-12 NL, Reflexes 2+ Psych/Mental Status: Mental status NL, Intact Judgment. No: Mood NL (depressed) - Laboratory Results Laboratory Results: Laboratory Results 09/30/18 09/30/18 09/30/18 11:00 11:00 Unknown WBC 8.80 RBC 4.21 Hgb 12.6 Hct 38.1 MCV 90.0 MCH 29.8 MCHC 33.0 RDW 12.6 Plt Count 282 Neut % (Auto) 71.6 Lymph % (Auto) 21.1 [place] % (Auto) 5.5 Eos % (Auto) 1.6 Baso % (Auto) 0.2 Neut # (Auto) 6.3 Lymph # (Auto) 1.9 [place] # (Auto) 0.5 Eos # (Auto) 0.1 Baso # (Auto) 0.0 Sodium 143 Potassium 3.8 Chloride 111 H Carbon Dioxide 25 BUN 13 Creatinine 0.50 L Est GFR ( Amer) > 60 Est GFR (Non-Af Amer) > 60 Glucose 93 Calcium 7.3 L Total Bilirubin < 0.1 L AST 15 ALT 28 Alkaline Phosphatase 59 Total Protein 6.4 Albumin 3.3 L Lipase 80 Assessment/Plan - Assessment/Plan (1) Abdominal pain Status: Acute Assessment: Patient was encouraged to reschedule appointment for endoscopy. Continue with Protonix. Watch diet. (2) Insomnia Status: Chronic Qualifiers: Insomnia type: primary Qualified Code(s): F51.01 - Primary insomnia Assessment: [facility] (3) Diverticulosis Status: Chronic Qualifiers: Diverticulosis site: diverticulosis of large intestine Assessment: stable (4) History of breast cancer Status: Chronic Assessment: stable with no history of reoccurrence VTE Assessment - RISK FACTOR SCORE VTE RISK FACTOR SCORES: AGE OVER 60 YEARS - RISK VTE LOW RISK: SCORE OF 1 OR LESS (RISK PROXIMAL DVT 0.4%) NO PROPHYLAXIS NEEDED
--- NOTE | 2018-10-03 16:01 | Discharge Summary ---
Discharge Summary - Discharge Sumary History of Present Illness: Patient is and 78-year-old white female who presented to the office complaining of not feeling well. Patient stated she recently was treated for diverticulitis. Patient states that when she took the antibiotics it caused her some problems that she is not had previously when she taken antibiotics. Patient has finished the course of the anabiotic several weeks ago but is not felt well since in. Patient stated her appetite has been diminished she feels that she may be getting dehydrated. Patient is not been able to sleep well. Patient has been scheduled for an endoscopy but was not able to keep the appointment. Patient was seen in clinic and was felt to be dehydrated. Patient was subsequently admitted to observation care for further workup and evaluation. Condition at Discharge: Stable Home Medications: Ambulatory Orders Medication Instructions Recorded Pantoprazole Sodium [Protonix] 20 mg PO D #30 tablet. 10/02/18 Consultations this Visit: None Procedures this Visit: None Allergies/Adverse Reactions: Allergies Allergy/AdvReac Type Severity Reaction Status Date / Time ciprofloxacin [From Cipro] AdvReac Increased Verified 09/30/18 19:49 Mucus Production metronidazole AdvReac Increased Verified 09/30/18 19:49 Mucus Production Discharge Summary: Patient was started on IV protonic. Patient was given her usual temazipine to help her sleep along with hydroxyzine. Labs came back within normal range. The day following admission patient abdominal exam normalized with very little tenderness. No distinction was noted. Bowel sounds remain stable. However patient did not sleep well on that evening and did not feel that she was going to be able to take care of yourself at home. That evening patient did have some hydroxyzine added to her usual sleep aids. Patient states that she did get a good night sleep and felt much better. Patient was subsequently discharged home in stable condition.
--- NOTE | 2018-10-03 16:06 | Inpatient Progress Note ---
Subjective - Required Recertification Statement I anticipate X number of days because-include discharge plan: 1 day - Review of Systems Subjective: Patient stated she did not sleep well last night and does not feel any better and perhaps feels worse. Patient states her stomach still is upset although she denies any nausea or vomiting. Patient has had bowel movements which is been normal. No fever or chills noted. Patient stated her appetite is diminished. Objective - Exam Vitals and I&O: Vital Signs Temp 97.3 F L 10/02/18 09:23 Pulse 105 H 10/02/18 09:23 Resp 18 10/02/18 09:23 BP 139/90 10/02/18 09:23 Pulse Ox 97 10/02/18 09:23 General: Alert, Oriented to Person, Oriented to Place, Oriented to Time HEENT: Atraumatic, PERRLA, EOMI, Mouth Mucous membr. moist/[place], Nose Mucous membr. moist/[place] Neck: Supple, No JVD, No thyromegaly Lungs: Clear to auscultation, Normal air movement, Speaks full Sentences Cardiovascular: Regular rate, Normal S1, Normal S2, No murmurs Abdomen: Normal bowel sounds, Soft, No tenderness, No hepatospenomegaly, No masses Extremities: No clubbing, No cyanosis, No edema, Normal pulses, No tenderness/swelling Skin: Normal, [place], Warm, Dry, Mottled Psych/Mental Status: Mental status NL, Mood NL, Appropriate Affect, Intact Judgment - Results Results: Laboratory Results WBC 8.80 K/ul (4.00-12.00) 09/30/18 11:00 RBC 4.21 M/ul (3.90-5.20) 09/30/18 11:00 Hgb 12.6 g/dL (12.0-16.0) 09/30/18 11:00 Hct 38.1 % (34.5-46.5) 09/30/18 11:00 MCV 90.0 fl (80.0-100.0) 09/30/18 11:00 MCH 29.8 pg (28.0-34.0) 09/30/18 11:00 MCHC 33.0 g/dL (30.0-36.0) 09/30/18 11:00 RDW 12.6 % (11.3-14.3) 09/30/18 11:00 Plt Count 282 K/mm3 (130-400) 09/30/18 11:00 Neut % (Auto) 71.6 % (39.0-79.0) 09/30/18 11:00 Lymph % (Auto) 21.1 % (16.0-50.0) 09/30/18 11:00 [place] % (Auto) 5.5 % (0.0-11.0) 09/30/18 11:00 Eos % (Auto) 1.6 % (0.0-6.8) 09/30/18 11:00 Baso % (Auto) 0.2 (0.0-1.5) 09/30/18 11:00 Neut # (Auto) 6.3 # k/uL (1.4-7.7) 09/30/18 11:00 Lymph # (Auto) 1.9 # k/uL (0.6-4.0) 09/30/18 11:00 [place] # (Auto) 0.5 # k/uL (0.0-0.9) 09/30/18 11:00 Eos # (Auto) 0.1 # k/uL (0.0-0.6) 09/30/18 11:00 Baso # (Auto) 0.0 # k/uL (0.0-0.5) 09/30/18 11:00 Sodium 143 mmol/L (136-145) 09/30/18 11:00 Potassium 3.8 mmol/L (3.5-5.1) 09/30/18 11:00 Chloride 111 mmol/L (98-107) H 09/30/18 11:00 Carbon Dioxide 25 mmol/L (22-30) 09/30/18 11:00 BUN 13 mg/dL (7-17) 09/30/18 11:00 Creatinine 0.50 mg/dL (0.52-1.04) L 09/30/18 11:00 Est GFR ( Amer) > 60 (60-) 09/30/18 11:00 Est GFR (Non-Af Amer) > 60 (60-) 09/30/18 11:00 Glucose 93 mg/dL (74-106) 09/30/18 11:00 Calcium 7.3 mg/dL (8.4-10.2) L 09/30/18 11:00 Total Bilirubin < 0.1 mg/dL (0.2-1.3) L 09/30/18 11:00 AST 15 U/L (15-46) 09/30/18 11:00 ALT 28 U/L (13-69) 09/30/18 11:00 Alkaline Phosphatase 59 U/L (38-126) 09/30/18 11:00 Total Protein 6.4 g/dL (6.3-8.2) 09/30/18 11:00 Albumin 3.3 g/dL (3.5-5.0) L 09/30/18 11:00 Lipase 80 U/L (23-300) 09/30/18 Unknown Assessment/Plan - Assessment/Plan (1) Abdominal pain Status: Acute Assessment: I believe some of her the abdominal discomfort may be related to depression and insomnia issues. Will try to help the patient sleep better this evening and see how that does. (2) Weakness Status: Acute Assessment: Patient will be palced on temazepineand hydroxyzine (3) History of breast cancer Status: Chronic (4) Insomnia Status: Chronic Qualifiers: Insomnia type: primary Qualified Code(s): F51.01 - Primary insomnia
== END 2018-10-02 10:00 | disposition home or self-care (01) ==
LOC: SOUTH 09:50
PROVIDERS: ADMIT Family Medicine; ATTEND Family Medicine
DX: R10.9 Unspecified abdominal pain (principal); E86.0 Dehydration; R06.02 Shortness of breath; R53.1 Weakness; F51.01 Primary insomnia; Z85.3 Personal history of malignant neoplasm of breast
CPT/HCPCS: 36415; 71046; 80053; 83690; 85025; 93005; G0378; G0379; J7030; 96360; 96361; 99217; 99219; 99224; S1016

== ENCOUNTER 2018-10-30 10:57 | Emergency (ER) | payer MEDICARE ==
--- NOTE | 2018-10-30 11:57 | ED Physician Documentation ---
Abdominal Pain - HISTORIAN Historian: patient - HPI Stated Complaint: Abdominal pain, "hurts to eat." Chief Complaint: Abdominal Pain Additonal Information: Patient presents to ED again with weakness and epigastric pain. She states this has been going on for 3-[address] Gunderson has been treating her and she felt best when she was on antibiotics, however, the antibiotics gave her an upper respiratory infection with copious amounts of mucous production. Patient has an appointment for EGD on ThursdayNov 01. She states the epigastric pain is bandlike pressure going around her entire body. She denies nausea/vomiting or diarrhea. She has had normal daily bowel movements. While in the ED she has been tachypneic with oxygen saturation 94% on room air. Family reports she has been this way for the past 2 years. Patient denies chest pain or shortness of breath. Onset: days ago (90) Duration: constant Timing: still present Context: denies: out of country travel Severity: moderate Quality: other (band like pain /10) Associated Symptoms: denies: fever, nausea, vomiting, diarrhea, chest pain Exacerbated by: nothing Relieved by: remaining still - ROS CONST: other (weakness) GI/: denies: constipation, bloody stools, problems urinating CVS/RESP: denies: shortness of breath, hurts to breath, cough EYES/ENT: denies: none MS/SKIN/LYMPH: denies: rash NEURO/PSYCH: denies: headache - SOCIAL HX Smoking History: non-smoker Alcohol Use: none Drug Use: none - FAMILY HX Family History: none - PAST HX Past History: none Ischemic Bowel Risk Factors: none Other History: none Home Medications: Ambulatory Orders Medication Instructions Recorded Pantoprazole Sodium [Protonix] 20 mg PO D #30 tablet. 10/02/18 Allergies/Adverse Reactions: Allergies Allergy/AdvReac Type Severity Reaction Status Date / Time ciprofloxacin [From Cipro] AdvReac Increased Verified 10/30/18 13:29 Mucus Production metronidazole AdvReac Increased Verified 10/30/18 13:29 Mucus Production - VITAL SIGNS Vital Signs: Vital Signs Temp Pulse Resp BP Pulse Ox 97.8 F 84 30 H 164/72 94 10/30/18 11:15 10/30/18 12:35 10/30/18 12:35 10/30/18 12:35 10/30/18 12:35 - REVIEWED ASSESSMENTS Nursing Assessment Reviewed: Yes Vitals Reviewed: Yes Progress - Progress Progress: 1300 Labs available showing K+ 5.7. Will give a liter of NS - EKG/XRAY/CT EKG: NSR Comments: 68 bpm. No t wave peaking ED Results Lab/Radiology - Lab Results Lab Results: Lab Results 10/30/18 12:20 NT-Pro-B Natriuret Pep 335.8 pg/mL pg/mL (15.0-450.0) WBC 11.8, Hgb 14.8, Hct 44.7, Plt 221. Na 135, K 3.5, Cl 102, CO2 25, BUN 20, Cr 0.7, Ca 8.3, ALT 14, AST 31, Alkp 63, Bili 0.4. - Radiology Radiology Impressions: CT chest abdomen pelvis with contrast. History: Tachypnea, epigastric pain. Technique: Transaxial computed tomographic images of the chest abdomen and pelvis were obtained with contrast according to standard protocol. Findings: Chest: The heart size is normal. There is mild atherosclerosis present. No adenopathy is present. There is severe emphysematous change present within the lungs with biapical pleural parenchymal scarring. No acute infiltrate is present. No pulmonary nodule present. No pleural effusion or pneumothorax is identified. Right mastectomy changes are present. Abdomen/pelvis: The liver gallbladder pancreas spleen and adrenal glands are normal. Left parapelvic cysts are noted. Scattered diverticular present in the colon without evidence of acute diverticulitis. The appendix is normal. There is atherosclerosis of the normal-sized abdominal aorta. There is no adenopathy present. The bladder is normal. There is no free fluid. There is degenerative change within the lumbar spine. Impression: 1. Severe emphysematous change without acute infiltrate. 2. No bowel wall thickening or dilation. 3. Diverticulosis without diverticulitis. 4. Additional findings include diffuse atherosclerosis, right mastectomy and lumbar spondylosis. Electronically signed on Oct 30, 2018 1:28:09 PM MANAGER CATH LAB by: Vinnie Riley - Orders Orders: ED Orders Category Date Time Status Place IV Lock 1T Care 10/30/18 11:[address] ABD & PELVIS W/ CON Stat Exams 10/30/[address] CHEST W/ CONTRAST Stat Exams 10/30/18 Completed BNP [NT-proBNP] Stat Lab 10/30/18 12:20 Completed CBC/PLATELET/DIFF Routine Lab 10/30/18 12:19 Received CMP Routine Lab 10/30/18 12:19 Received 0.9 % Sodium Chloride [Normal Saline] 1,000 ml Med 10/30/18 12:29 Discontinued IV Q1H EKG WITH COMPARISON Stat Ther 10/30/18 Ordered Abdominal Pain Physical Exam - Physical Exam General Appearance: alert, other (tachypnea) EENT: HETAL NECK: supple RESPIRATORY: rhonchi (bibasilar) CVS: reg rate & rhythm, heart sounds normal ABDOMEN: tenderness (LLQ), increased BS, distended (firm) BACK: no CVA tenderness SKIN: warm/dry, normal color EXTREMITIES: non-tender NEURO: oriented X3, motor nml Vital Signs: Vital Signs Temp Pulse Resp BP Pulse Ox 97.8 F 84 30 H 164/72 94 10/30/18 11:15 10/30/18 12:35 10/30/18 12:35 10/30/18 12:35 10/30/18 12:35 Discharge Clincal Impression: Epigastric abdominal pain of unknown etiology, Hyperkalemia Emphysema lung Qualifiers: Emphysema type: panlobular Qualified Code(s): J43.1 - Panlobular emphysema Referrals: Frank Gunderson MD [Primary Care Provider] - 2 Days Additional Instructions: 1. Follow up on Thursday for EGD by GI 2. Continue to take Protonix daily 3. Drink 2 liters of water daily. 4. Patient may benefit with home oxygen at night 5. Follow up with PCP within 1 week and have labs drawn to recheck potassium 6. Return to ED for new or worsening symptom. Condition: Stable Decision to Admit: NO Date of Decison to Admit: 10/30/18 Decision Time: 14:25
[2018-10-30] MEDS ORDERED: 0.9 % SODIUM CHLORIDE 1,000 ML IV ONE (12:29)
--- NOTE | 2018-10-30 13:38 | Diagnostic Imaging Report ---
GILA HADLEY [facility] [address] [facility] [address] [place] [id number]. [id number] Report Submission Date: Oct 30, 2018 1:28:09 PM MANAGER PRIMARY Patient Study Name: GREGG EVANS Date: Oct 30, 2018 1:00:53 PM MANAGER PRIMARY Modality Type: CT\SR Gender: F Description: CT CHEST/ABD/PEL W/CONTRAST : 36 Institution: [facility] Physician: GILA HADLEY CT chest abdomen pelvis with contrast. History: Tachypnea, epigastric pain. Technique: Transaxial computed tomographic images of the chest abdomen and pelvis were obtained with contrast according to standard protocol. Findings: Chest: The heart size is normal. There is mild atherosclerosis present. No adenopathy is present. There is severe emphysematous change present within the lungs with biapical pleural parenchymal scarring. No acute infiltrate is present. No pulmonary nodule present. No pleural effusion or pneumothorax is identified. Right mastectomy changes are present. Abdomen/pelvis: The liver gallbladder pancreas spleen and adrenal glands are normal. Left parapelvic cysts are noted. Scattered diverticular present in the colon without evidence of acute diverticulitis. The appendix is normal. There is atherosclerosis of the normal-sized abdominal aorta. There is no adenopathy present. The bladder is normal. There is no free fluid. There is degenerative change within the lumbar spine. Impression: 1. Severe emphysematous change without acute infiltrate. 2. No bowel wall thickening or dilation. 3. Diverticulosis without diverticulitis. 4. Additional findings include diffuse atherosclerosis, right mastectomy and lumbar spondylosis. Electronically signed on Oct 30, 2018 1:28:09 PM MANAGER PRIMARY by: Vinnie Riley [facility]ITAL[facility]qu[facility]
--- NOTE | 2018-10-30 13:38 | Diagnostic Imaging Report ---
GILA HADLEY [facility] [address] [facility] [address] [place] [address]. [id number] Report Submission Date: Oct 30, 2018 1:28:09 PM RESTAURANT INSPECTOR Patient Study Name: GREGG EVANS Date: Oct 30, 2018 1:00:53 PM RESTAURANT INSPECTOR Modality Type: CT\SR Gender: F Description: CT CHEST/ABD/PEL W/CONTRAST : 36 Institution: [facility] Physician: GILA HADLEY CT chest abdomen pelvis with contrast. History: Tachypnea, epigastric pain. Technique: Transaxial computed tomographic images of the chest abdomen and pelvis were obtained with contrast according to standard protocol. Findings: Chest: The heart size is normal. There is mild atherosclerosis present. No adenopathy is present. There is severe emphysematous change present within the lungs with biapical pleural parenchymal scarring. No acute infiltrate is present. No pulmonary nodule present. No pleural effusion or pneumothorax is identified. Right mastectomy changes are present. Abdomen/pelvis: The liver gallbladder pancreas spleen and adrenal glands are normal. Left parapelvic cysts are noted. Scattered diverticular present in the colon without evidence of acute diverticulitis. The appendix is normal. There is atherosclerosis of the normal-sized abdominal aorta. There is no adenopathy present. The bladder is normal. There is no free fluid. There is degenerative change within the lumbar spine. Impression: 1. Severe emphysematous change without acute infiltrate. 2. No bowel wall thickening or dilation. 3. Diverticulosis without diverticulitis. 4. Additional findings include diffuse atherosclerosis, right mastectomy and lumbar spondylosis. Electronically signed on Oct 30, 2018 1:28:09 PM RESTAURANT INSPECTOR by: Vinnie Riley [facility]PITALJacqu[facility]
[2018-10-30] MEDS ORDERED: FUROSEMIDE 20 MG/2 ML VIAL IVP ONE (14:49)
[2018-10-30 16:31] VITALS: BP 186/72
[2018-11-01 07:26] LABS: eGFR (Non-African) > 60
[2018-11-01 07:27] LABS: BASOPHILS % 0.5 (0.0-1.5); EOSINOPHILS % 1.9 % (0.0-6.8); MEAN CORPUSCULAR HEMOGLOBIN 29.1 pg (28.0-34.0); MONOCYTES % 3.2 % (0.0-11.0)
== END 2018-10-30 16:05 | disposition home or self-care (01) ==
LOC: ED 10:57
DX: R10.13 Epigastric pain (principal); E87.5 Hyperkalemia; J43.1 Panlobular emphysema
CPT/HCPCS: 36415; 71260; 74177; 80053; 83880; 85025; 93005; 96365; 96375; 99283; 99285; J1940; J7030; Q9967; S1016

== ENCOUNTER 2018-11-01 08:24 | Day surgery (SDC) | payer MEDICARE ==
[2018-11-01 11:07] LABS: eGFR (Non-African) > 60
[2018-11-01 11:08] LABS: BASOPHILS % 0.3 (0.0-1.5); EOSINOPHILS % 1.2 % (0.0-6.8); MEAN CORPUSCULAR HEMOGLOBIN 29.2 pg (28.0-34.0); MONOCYTES % 5.4 % (0.0-11.0); NEUTROPHILS # 7.1 # k/uL (1.4-7.7)
--- NOTE | 2018-11-01 12:01 | Diagnostic Imaging Report ---
[place]/MED SURG [facility] [address] [address] [facility] [id number] Report Submission Date: Nov 01, 2018 11:52:12 AM RN ADVANCED Patient Study Name: GREGG EVANS Date: Nov 01, 2018 11:12:07 AM RN ADVANCED Modality Type: DX Gender: F Description: CHEST : 36 Institution: [facility] Physician: MARVIN CLARKE/MED SURG Examination: PA and lateral chest. History: Evaluate lung coe. Comparison exam: 30 September 2018 Findings: PA and lateral views of the chest demonstrates a normal cardiac and mediastinal silhouette. Vascular calcification by the aortic arch. Chronic interstitial changes. Bihilar stable scarring. No focal infiltrate. No blunting of the costophrenic margins. Articular degenerative changes. Impression: Chronic interstitial changes/scarring. No acute appearing pulmonary process. Electronically signed on Nov 01, 2018 11:52:12 AM RN ADVANCED by: Rock MERCHANT
== END 2018-11-01 11:45 ==
LOC: OPSURG 08:24
PROVIDERS: ATTEND Internal Medicine Gastroenterology
DX: Z01.812 Encounter for preprocedural laboratory examination (principal); Z01.818 Encounter for other preprocedural examination; R10.13 Epigastric pain
CPT/HCPCS: 36415; 71046; 80053; 85025

== ENCOUNTER 2019-10-24 08:13 | Emergency (ER) | payer MEDICARE ==
[2019-10-24 08:37] VITALS: BP 161/72
--- NOTE | 2019-10-24 08:38 | ED Physician Documentation ---
General Adult - HISTORIAN Historian: patient - HPI Stated Complaint: L rib pain Chief Complaint: General Adult Onset: days ago (3) Timing: still present Severity: moderate Further Comments: yes (Pt is an 79 yo female who fell in bathtub 3 days ago and has L sided rib pain. Pain occurs with movement. Pt has been sleeping without too much trouble.) - ROS CONST: no problems EYES/ENT: none CVS/RESP: other (L rib pain) GI/: none MS/SKIN/LYMPH: other (L rib pain) - PAST HX Past History: other (anxiety, cancer, R mastectomy, Fibromyalgia, GERD, Neuropathy, OA, chronic fatigue, diverticulosis, hysterectomy.) Allergies/Adverse Reactions: Allergies Allergy/AdvReac Type Severity Reaction Status Date / Time ciprofloxacin [From Cipro] AdvReac Increased Verified 10/24/19 08:28 Mucus Production metronidazole AdvReac Increased Verified 10/24/19 08:28 Mucus Production - SOCIAL HX Smoking History: non-smoker - FAMILY HX Family History: No - VITAL SIGNS Vital Signs: Vital Signs Temp Pulse Resp BP Pulse Ox 97.5 F L 78 16 161/72 95 10/24/19 08:15 10/24/19 08:15 10/24/19 08:15 10/24/19 08:15 10/24/19 08:15 - REVIEWED ASSESSMENTS Nursing Assessment Reviewed: Yes Vitals Reviewed: Yes Progress - Progress Progress: X-ray L ribs & CXR: No jackie consolidation or effusion. Acute fractures of the left 7th and 8th ribs. Pt has lidocaine patches at home as well as an incentive spirometer and does not desire additional pain med at this time. Pt has not had flu shot, and is encouraged to get one and is given handout. f/u pcp General Adult Physical Exam - PHYSICAL EXAM GENERAL APPEARANCE: mild distress EENT: pharynx normal NECK: normal inspection, supple RESPIRATORY: no resp distress, breath sounds normal, other (L lower chest wall tenderness) CVS: reg rate & rhythm, heart sounds normal ABDOMEN: soft, no organomegaly, normal bowel sounds BACK: normal inspection, no CVA tenderness SKIN: warm/dry, normal color EXTREMITIES: non-tender, normal range of motion, no evidence of injury NEURO: oriented X3, motor nml, sensation nml Discharge Clincal Impression: Fractures of L ribs 7 & 8 Referrals: Frank Gunderson MD [Primary Care Provider] - Condition: Stable Disposition: 01 HOME, SELF-CARE Decision to Admit: NO Decision Time: 09:35
--- NOTE | 2019-10-24 09:14 | Diagnostic Imaging Report ---
PATIENT MR#: [id number] PATIENT PATIENT NAME: GREGG EVANS DATE OF : 1940 REFERRING PHYSICIAN: Willy Larson EXAM DATE: 10/24/2019 ACCESSION NUMBER: [id number] EXAM DESCRIPTION: RIBS UNILATERAL W/ PA CHEST Exam: Left ribs with PA chest. History: Status post fall. The examination is compared to study dated November 01, 2018. Lung coe are well aerated without jackie consolidation or effusion. Heart and mediastinal contours are normal with atherosclerotic plaques seen in the aorta. 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 Acute fracture o f the left 7th and 8th ribs are noted. No pleural or periosteal reaction is seen. No pneumothorax is identified. Impression: No jackie consolidation or effusion. Acute fractures of the left 7th and 8th ribs. Read by: Dr. Pablito Cr Transcribed by: Transcribed Date: Electronically signed by: Dr. Pablito Cr Date signed: 10/24/2019 9:13:49 AM
== END 2019-10-24 09:22 | disposition home or self-care (01) ==
LOC: ED 08:13
DX: S22.42XA Multiple fractures of ribs, left side, initial encounter for closed fracture (principal); W18.2XXA Fall in (into) shower or empty bathtub, initial encounter
CPT/HCPCS: 71101; 99282; 99283